=== PATIENT | male | born 1935 ===

== ENCOUNTER 2017-08-11 04:29 | Inpatient (IN) | payer MEDICARE ==
[2017-08-11] MEDS ORDERED: Sodium Chloride 0.9% 1,000 ML IV STA ×2 (04:43→05:26)
[2017-08-11] MEDS ORDERED: Lidocaine 2% w Epi 1:100,000 Inj IJ ONE (04:57)
--- NOTE | 2017-08-11 05:35 | ED PDOC ---
HPI:Nausea, Vomiting, Diarrhea <Kia Vu - Last Filed: 08/11/17 05:45> Chief Complaint (Provider): Hematemesis History Per: Patient, Family History/Exam Limitations: intoxication Onset/Duration Of Symptoms: Hrs (x1) Current Symptoms Are (Timing): Still Present Associated Symptoms: Vomiting Additional Complaint(s): 82 year old male, accompanied by and daughter (historians), presents to ED with complaints of hematemesis x1 hour and has a past medical history of DM, alcoholism, and previous GI bleeds. states patient vomited twice and has been drinking all day. (+) bright red blood including clots. Notes that symptoms are similar to patient's GI bleed 2 years ago, for which he was hospitalized in ICU. Reports that patient has continued to drink since the previous episode. Notes that patient also fell and hit his head, causing a laceration to the right eyebrow. PCP:Tammie Amezquita <Gil Cruz - Last Filed: 08/11/17 06:36> Time Seen by Provider: 08/11/17 04:36 Chief Complaint (Nursing): Abdominal Pain Past Medical History Vital Signs: Last Vital Signs Temp 97.3 F L 08/11/17 04:42 Pulse 99 H 08/11/17 04:42 Resp 16 08/11/17 04:42 BP 100/62 08/11/17 04:42 Pulse Ox 96 08/11/17 05:43 <Kia Vu - Last Filed: 08/11/17 05:45> Reviewed: Historical Data, Nursing Documentation, Vital Signs Vital Signs: Last Vital Signs Temp 97.3 F L 08/11/17 04:42 Pulse 99 H 08/11/17 04:42 Resp 16 08/11/17 04:42 BP 100/62 08/11/17 04:42 Pulse Ox 96 08/11/17 04:42 - Medical History PMH: Diabetes Denies: HIV, Chronic Kidney Disease Other PMH: GI bleeds, alcoholism - Surgical History Surgical History: No Surg Hx - Family History Family History: States: No Known Family Hx - Social History Alcohol: > 2 Drinks/Day Drugs: Denies <Gil Cruz - Last Filed: 08/11/17 06:36> - Home Medications Home Medications: Ambulatory Orders Medication Instructions Recorded No Known Home Med 07/26/12 - Allergies Allergies/Adverse Reactions: Allergies Allergy/AdvReac Type Severity Reaction Status Date / Time No Known Allergies Allergy Verified 07/31/15 21:23 Review of Systems ROS Statement: Except As Marked, All Systems Reviewed And Found Negative Gastrointestinal: Positive for: Vomiting, Hematemesis Skin: Positive for: Other (right eyebrow laceration) <Gil Cruz - Last Filed: 08/11/17 06:36> Physical Exam - Reviewed Nursing Documentation Reviewed: Yes Vital Signs Reviewed: Yes - Physical Exam Appears: Positive for: Non-toxic, No Acute Distress Head Exam: Positive for: NORMOCEPHALIC. Negative for: ATRAUMATIC (2 cm laceration to right eyebrow) Skin: Positive for: Warm, Dry, Pallor Eye Exam: Positive for: Normal appearance, EOMI, PERRL ENT: Positive for: Normal ENT Inspection Cardiovascular/Chest: Positive for: Regular Rate, Rhythm, Murmur (holosystolic murmur 3/6), Tachycardia Respiratory: Positive for: Normal Breath Sounds. Negative for: Respiratory Distress Gastrointestinal/Abdominal: Positive for: Soft. Negative for: Tenderness Extremity: Positive for: Normal ROM. Negative for: Deformity Neurologic/Psych: Positive for: Alert, Oriented <Gil Cruz - Last Filed: 08/11/17 06:36> - Laboratory Results Result Diagrams: 08/11/17 05:36 <Kia Vu - Last Filed: 08/11/17 05:45> - Laboratory Results Result Diagrams: 08/11/17 05:36 08/11/17 05:36 - ECG O2 Sat by Pulse Oximetry: 96 (RA) Pulse Ox Interpretation: Normal - Critical Care Total Time (In Min): 60 <Gil Cruz - Last Filed: 08/11/17 06:36> Medical Decision Making Medical Decision Makin Initial impression: acute upper GI bleed in setting of known alcoholism and previous GI bleeds, head injury Initial plan: * ABO/RH type * T&S * ABG shock panel * CT HEAD * CT MAXILLOFACIAL * EKG * EtOH serum * Labs * UDrug screen * Trop I * PTT/PT * CXR * Adacel 0.5mL IM * NS IV * Protonix Inj 4mg IV * Sandostatin 1250mcg IV * Zofran Inj 4mg Iv * Accucheck * UA * Re-eval 0506 * INPATIENT ICU order [address] Amezquita, who accepts patient under his service. Scribe Attestation: Documented by Karishma Arroyo acting as a scribe for Gil Cruz MD. MD Scribe Attestation: All medical record entries made by the Scribe were at my direction and personally dictated by me. I have reviewed the chart and agree that the record accurately reflects my personal performance of the history, physical exam, medical decision making, and the department course for this patient. I have also personally directed, reviewed, and agree with the discharge instructions and disposition. <Gil Cruz - Last Filed: 08/11/17 06:36> Disposition <Kia uV - Last Filed: 08/11/17 05:45> - Patient ED Disposition Is Patient to be Admitted: Yes Discussed With DrSam: Tammie Amezquita (Dr Almaraz) Counseled Patient/Family Regarding: Studies Performed, Diagnosis - Disposition Disposition Time: 06:00 - Pt Status Changed To: Hospital Disposition Of: Inpatient - Admit Certification Admit to Inpatient:: After my assessment, the patient will require hospitalization for at least two midnights. This is because of the severity of symptoms shown, intensity of services needed, and/or the medical risk in this patient being treated as an outpatient. <Gil Cruz - Last Filed: 08/11/17 06:36> - Clinical Impression Clinical Impression: GI bleed, Alcohol abuse, Eyebrow laceration - Disposition Condition: GUARDED Procedures - Laceration/Wound Repair Face Wound Length (cm): 3 (right eyebrow laceration) Wound's Depth, Shape: irregular, stellate Wound Explored: clean Irrigated w/ Saline (ccs): 200 Betadine Prep?: No Anesthesia: Lidocaine w/ Epi Wound Repaired With: Sutures Suture Size/Type: 5:0, nylon Number of Sutures: 6 Layer Closure?: No Wound Complexity: Intermediate Sterile Dressing Applied?: Yes (bacitracin applied) Splint Applied?: No <Kia Vu - Last Filed: 08/11/17 05:45>
[2017-08-11 05:41] LABS: ABG ALLEN TEST YES; ARTERIAL BLOOD GAS HCO3 20.7 mmol/L (21-28); ARTERIAL BLOOD GAS PH 7.42 (7.35-7.45); ARTERIAL BLOOD GAS PO2 108 mm/Hg (80-100)
[2017-08-11 05:42] LABS: BASO # 0.1 K/uL (0.0-0.2); BASO % 1.1 % (0.0-2.0); EOS % 0.4 % (0.0-4.0); HEMATOCRIT 34.5 % (35.0-51.0); LYMPH # 1.2 K/uL (1.0-4.3); LYMPH % 9.3 % (20.0-40.0); MEAN CELL VOLUME 100.4 fl (80.0-94.0); MEAN CORPUSCULAR HEMOGLOBIN 32.7 pg (27.0-31.0); MEAN CORPUSCULAR HGB CONC 32.6 g/dL (33.0-37.0); MEAN PLATELET VOLUME 8.9 fl (7.2-11.7); MONO # 0.6 K/uL (0.0-0.8); MONO % 4.8 % (0.0-10.0); NEUT # 10.6 K/uL (1.8-7.0); NEUT % 84.4 % (50.0-75.0); PLATELET COUNT 197 K/uL (130-400); RED CELL DISTRIBUTION WIDTH 16.1 % (11.5-14.5); WHITE BLOOD COUNT 12.5 K/uL (4.8-10.8)
[2017-08-11 05:50] LABS: ALB/GLOB RATIO 1.2 (1.0-2.1); BILIRUBIN,TOTAL 0.4 mg/dl (0.2-1.3); CALCIUM 9.2 mg/dL (8.4-10.2); POTASSIUM 4.3 MMOL/L (3.6-5.0); TOTAL PROTEIN 8.2 G/DL (6.3-8.2)
[2017-08-11 05:52] LABS: PARTIAL THROMBOPLASTIN TIME 27.7 Seconds (25.6-37.1)
--- NOTE | 2017-08-11 05:59 | CP.PCM.CON ---
History of Present Illness - History of Present Illness History of Present Illness: PCP: Tammie Amezquita MD Reason for Consult: Critical care Management Chief Complaint: Hematemesis/fall with head injury The [facility] HPI: The hx was obtained from the patient's family as he was a poor historian. He is an 82 years old male who does not walk but has hx of Being an Alcoholic drinking 1/2 to one pint of Rum daily and prior GI bleed. He was brought to the ED after drinking Alcohol, Vomiting red Bloody material including clots twice, then had a witnessed fall hitting and lacerating above the right eye. No LOC. PMH: DM II; GI Bleed: Alcoholism\ PSH: Denies SH: Drinks 1/2 to one pint of Rum daily; Never smoked; no illegal drug use; live with his family FH: No known family hx Allergies. NKDA Medication: None Review of Systems - Review of Systems Review of Systems: Review of system is limited because of the patients state of Intoxication and head injury. Family referred no complaints prior to his most recent drinking . Past Patient History - Past Medical History & Family History Past Medical History?: Yes - Past Social History Smoking Status: Never Smoked Chewing Tobacco Use: No Cigar Use: No Alcohol: > 2 Drinks/Day Drugs: Denies Home Situation {Lives}: With Family - CARDIAC Hx Cardiac Disorders: No - PULMONARY Hx Respiratory Disorders: No - NEUROLOGICAL Hx Neurological Disorder: No - HEENT Hx HEENT Problems: No - RENAL Hx Chronic Kidney Disease: No - ENDOCRINE/METABOLIC Hx Endocrine Disorders: No - HEMATOLOGICAL/ONCOLOGICAL Hx Blood Disorders: No Hx Human Immunodeficiency Virus (HIV): No - INTEGUMENTARY Hx Dermatological Problems: No - MUSCULOSKELETAL/RHEUMATOLOGICAL Hx Musculoskeletal Disorders: No Hx Falls: Yes - GASTROINTESTINAL Other/Comment: GI bleed - GENITOURINARY/GYNECOLOGICAL Hx Genitourinary Disorders: No - PSYCHIATRIC Hx Emotional Abuse: No Hx Physical Abuse: No - SURGICAL HISTORY Hx Surgeries: No - ANESTHESIA Hx Anesthesia: No Meds Allergies/Adverse Reactions: Allergies Allergy/AdvReac Type Severity Reaction Status Date / Time No Known Allergies Allergy Verified 07/31/15 21:23 - Medications Medications: Current Medications Sodium Chloride (Sodium Chloride 0.9%) 1,000 mls @ 250 mls/hr IV .Q4H STA Stop: 08/11/17 08:42 Pantoprazole Sodium 40 mg/ (Sodium Chloride) 100 mls @ 20 mls/hr IV .Q5H ENRIQUE PRN Reason: 8 MG/HR Octreotide Acetate 1,250 mcg/ (Sodium Chloride) 252.5 mls @ 10.1 mls/hr IV .Q24H ENRIQUE PRN Reason: 50 MCG/HR Last Admin: 08/11/17 05:51 Dose: 10.1 mls/hr Sodium Chloride (Sodium Chloride 0.9%) 1,000 mls @ 1,000 mls/hr IV .Q1H STA Stop: 08/11/17 06:25 Last Admin: 08/11/17 05:36 Dose: 1,000 mls/hr Physical Exam - Constitutional Appears: No Acute Distress - Head Exam Head Exam: NORMOCEPHALIC Additional comments: Laceration at the right eye brow sutured, no subconjunctival hemorrhage. Vision has not changed as per family. - Eye Exam Eye Exam: EOMI, Normal appearance - ENT Exam ENT Exam: Mucous Membranes Moist, Normal Exam, Normal External Ear Exam - Neck Exam Neck exam: Positive for: Full Rom, Normal Inspection. Negative for: Lymphadenopathy, Tenderness - Respiratory Exam Respiratory Exam: Clear to Auscultation Bilateral. absent: Rales, Rhonchi, Wheezes - Cardiovascular Exam Cardiovascular Exam: REGULAR RHYTHM, RRR, +S1, +S2. absent: Gallop, JVD - GI/Abdominal Exam GI & Abdominal Exam: Normal Bowel Sounds, Soft. absent: Hypoactive Bowel Sounds , Mass, Tenderness - Rectal Exam Rectal Exam: Deferred - Extremities Exam Extremities exam: Negative for: calf tenderness, pedal edema Additional comments: Bruises to both knees. - Back Exam Back exam: NORMAL INSPECTION. absent: CVA tenderness (L), CVA tenderness (R) - Neurological Exam Neurological exam: Alert, CN II-XII Intact, Reflexes Normal Additional comments: nswers questions when the family talks to him/ Moves all extremities - Psychiatric Exam Psychiatric exam: Normal Affect, Normal Mood - Skin Skin Exam: Dry, Intact, Normal Color, Warm Results - Vital Signs Recent Vital Signs: Last Vital Signs Temp 97.3 F L 08/11/17 04:42 Pulse 99 H 08/11/17 04:42 Resp 16 08/11/17 04:42 BP 100/62 08/11/17 04:42 Pulse Ox 96 08/11/17 05:43 - Labs Result Diagrams: 08/11/17 05:36 08/11/17 05:36 Labs: Laboratory Results - last 24 hr 08/11/17 08/11/17 08/11/17 05:36 05:36 05:37 WBC 12.5 H D RBC 3.43 L Hgb 11.2 L Hct 34.5 L MCV 100.4 H MCH 32.7 H MCHC 32.6 L RDW 16.1 H Plt Count 197 MPV 8.9 Neut % (Auto) 84.4 H Lymph % (Auto) 9.3 L [place] % (Auto) 4.8 Eos % (Auto) 0.4 Baso % (Auto) 1.1 Neut # 10.6 H Lymph # 1.2 [place] # 0.6 Eos # 0.0 Baso # 0.1 PT 10.1 INR 0.9 APTT 27.7 pCO2 27 L pO2 108 H HCO3 20.7 L ABG pH 7.42 ABG Total CO2 18.3 L ABG O2 Saturation 99.7 H ABG Base Excess -5.5 L Gigi Test Yes ABG Potassium 4.3 A-a O2 Difference 8.0 Sodium 138.0 Chloride 101.0 Glucose 129 H Lactate 7.6 H* FiO2 21.0 Crit Value Called To Gil malone md Crit Value Called By [id number] Crit Value Read Back Y Blood Gas Notified Time 540 Arterial Blood Potassium 4.3 - Impressions Impression: NSR 99/min with Peaked T waves in leads V3-6 - Imaging and Cardiology Chest x-ray Status: Image reviewed by me Additional comment: No Infiltrates CT scan - head Status: Image reviewed by me, Report reviewed by me Additional comment: No intracraneal bleed Maxillofacila CT Status: Image reviewed by me, Report reviewed by me Additional comment: Fracture of Anterior Nasal Bone Assessment & Plan - Assessment and Plan (Free Text) Assessment: #. Upper GI Bleed #. Head Injury #. Right Eyebrow laceration #. Anemia #. Thrombocytopenia #. Azotemia #. leukocytosis #. Alcoholism Plan: 82 years old male who does not walk but has hx of Being an Alcoholic drinking 1/2 to one pint of Rum daily and prior GI bleed. He was brought to the ED after drinking Alcohol, Vomiting red Bloody material including clots twice, then had a witnessed fall hitting and lacerating above the right eye. No LOC. #. Upper GI Bleed due to esophageal varices vs a Mallery Payne tear - Consult GI Dr Cast - Protonix Drip - Octreotide drip - NPO - Follow Hb Q8H #. Head injury and right eyebrow laceration - Sutured bu ED Doctor - Observe for Mental status change, vomiting, severe headaches #. Macrocytic Anemia - Folic Acid -follow HB #. Thrombocytopenia due to Alcohol abuse - follow Platelets #. Azotemia - IV fluis - Follow Renal labs #. leukocytosis, reactional - Follow WBC #. Alcoholism - CIWA protocol for Withdrawal of Alcohol - Ativan for Agitation #. DVT protocol with SCD. No Anticoagulant because of GI bleed #. Codse Status: Full - Date & Time Date: 08/11/17 Time: 05:59
[2017-08-11 06:00] LABS: TROPONIN I 0.028 ng/mL (0.00-0.120)
[2017-08-11] MEDS ORDERED: Multivitamin (MVI) 10 ML, Folic Acid 1 MG, Thiamine 100 MG in Sodium Chloride 0.9% 1,00... IV ONE (06:38)
--- NOTE | 2017-08-11 06:48 | CT ---
EXAM: CT Maxillofacial Without Intravenous Contrast EXAM DATE/TIME: 08/11/2017 5:04 AM CLINICAL HISTORY: 82 years old, male; Injury or trauma; Fall; Initial encounter; Blunt trauma (contusions or hematomas); Maxilla; Additional info: Facial trauma TECHNIQUE: Axial computed tomography images of the face without intravenous contrast. All CT scans at this facility use one or more dose reduction techniques, viz.: automated exposure control; ma/kV adjustment per patient size (including targeted exams where dose is matched to indication; i.e. head); or iterative reconstruction technique. Coronal and sagittal reformatted images were created and reviewed. COMPARISON: No relevant prior studies available. FINDINGS: Bones/joints: Fracture left anterior nasal bone. No appreciable overlying soft tissue swelling. Soft tissues: Mild right frontal scalp swelling and likely laceration with tiny air bubbles in the soft tissue. Orbits: Both globes, optic nerves and extraocular muscles appear symmetrical. Sinuses: Procedure thickening ethmoid and maxillary sinuses. Bilateral contra bullosa of middle turbinates. No air-fluid levels. IMPRESSION: Fracture left anterior nasal bone. Indeterminate age, correlate with physical examination.
[2017-08-11] MEDS: Pantoprazole 40 MG in Sodium Chloride 0.9% 100 ML IV SCH ×4 (06:52→21:25)
--- NOTE | 2017-08-11 06:52 | CT ---
EXAM: CT Head Without Intravenous Contrast EXAM DATE/TIME: 08/11/2017 5:04 AM CLINICAL HISTORY: 82 years old, male; Injury or trauma; Fall; Additional info: Head injury TECHNIQUE: Axial computed tomography images of the head/brain without intravenous contrast. All CT scans at this facility use one or more dose reduction techniques, viz.: automated exposure control; ma/kV adjustment per patient size (including targeted exams where dose is matched to indication; i.e. head); or iterative reconstruction technique. Coronal and sagittal reformatted images were created and reviewed. COMPARISON: CT HEAD OR BRAIN W/O CONT 2013-02-05 15:48 FINDINGS: There is no subdural or subarachnoid hemorrhage. There is no intraparenchymal hemorrhage or hemorrhagic contusion. Normal aviles white differentiation is noted. No midline shift or mass effect is identified. There are periventricular white matter changes of small vessel ischemic disease. There are cerebellar and cerebral atrophy. Calvarium and visualized facial bones appear intact. There is mucosal thickening of ethmoid and maxillary sinuses. There is cerumen in the right external auditory canal. IMPRESSION: 1. No evidence of acute intracerebral hemorrhage or edema. 2. Small vessel ischemic disease and atrophy.
[2017-08-11 09:13] LABS: BASO # 0.1 K/uL (0.0-0.2); BASO % 0.4 % (0.0-2.0); HEMATOCRIT 32.8 % (35.0-51.0); LYMPH # 0.6 K/uL (1.0-4.3); LYMPH % 3.9 % (20.0-40.0); MEAN CELL VOLUME 100.7 fl (80.0-94.0); MEAN CORPUSCULAR HEMOGLOBIN 32.3 pg (27.0-31.0); MEAN CORPUSCULAR HGB CONC 32.1 g/dL (33.0-37.0); MEAN PLATELET VOLUME 8.9 fl (7.2-11.7); MONO # 0.6 K/uL (0.0-0.8); NEUT # 14.3 K/uL (1.8-7.0); NEUT % 91.7 % (50.0-75.0); RED CELL DISTRIBUTION WIDTH 15.5 % (11.5-14.5); WHITE BLOOD COUNT 15.6 K/uL (4.8-10.8)
[2017-08-11] MEDS ORDERED: Multivitamin (MVI) 10 ML, Thiamine 100 MG in Sodium Chloride 0.9% 1,000 ML IV ONE (10:07)
[2017-08-11] MEDS ORDERED: Influenza Vaccine 18yr & older 0.5 ML/45 MCG SYR IM ONE (10:30)
[2017-08-11 10:33] LABS: NEUTROPHIL 82 % (42-75); TOTAL CELLS COUNTED 100
--- NOTE | 2017-08-11 11:14 | RAD ---
HISTORY: GI Bleed COMPARISON: 07/31/2015 FINDINGS: LUNGS: The lungs are well inflated and clear. PLEURA: No significant pleural effusion identified, no pneumothorax apparent. CARDIOVASCULAR: Normal. OSSEOUS STRUCTURES: No significant abnormalities. VISUALIZED UPPER ABDOMEN: Normal. OTHER FINDINGS: None. IMPRESSION: No active pulmonary disease.
[2017-08-11 20:16] LABS: HEMATOCRIT 28.4 % (35.0-51.0); MEAN CELL VOLUME 105.3 fl (80.0-94.0); MEAN CORPUSCULAR HGB CONC 31.3 g/dL (33.0-37.0); RED CELL DISTRIBUTION WIDTH 16.6 % (11.5-14.5); WHITE BLOOD COUNT 8.2 K/uL (4.8-10.8)
[2017-08-11 23:04] LABS: RBC URINE 3 /hpf (0-3); URINE BILIRUBIN NEGATIVE (NEGATIVE); URINE BLOOD NEGATIVE (NEGATIVE); URINE COLOR YELLOW (YELLOW); URINE GLUCOSE (UA) NEG (Normal); URINE KETONE 20 mg/dL (NEGATIVE); URINE LEUKOCYTE ESTERASE NEG Leu/uL (Negative); URINE PROTEIN NEGATIVE (NEGATIVE); URINE UROBILINOGEN 0.2-1.0 mg/dL (0.2-1.0); WBC URINE 2 /hpf (0-5)
[2017-08-12 00:45] LABS: HEMATOCRIT 26.3 % (35.0-51.0); MEAN CELL VOLUME 99.6 fl (80.0-94.0); MEAN CORPUSCULAR HEMOGLOBIN 32.7 pg (27.0-31.0); MEAN CORPUSCULAR HGB CONC 32.8 g/dL (33.0-37.0); RED CELL DISTRIBUTION WIDTH 15.5 % (11.5-14.5); WHITE BLOOD COUNT 8.6 K/uL (4.8-10.8)
[2017-08-12] MEDS: Pantoprazole 40 MG in Sodium Chloride 0.9% 100 ML IV SCH ×2 (02:54→11:01)
[2017-08-12] MEDS: Sodium Chloride 0.9% 1,000 ML IV SCH ×3 (02:55→11:07)
--- NOTE | 2017-08-12 04:42 | HP ---
HISTORY OF PRESENT ILLNESS: This is an 82 years old male with history of EtOH abuse and BPH, who was brought to emergency room after a fall and vomiting of coffee-ground material. The patient sustained contusion of the right ophthalmic area after the fall. The patient has previous history of upper gastrointestinal bleeding. The patient drinks everyday *------*. He denies any abdominal pain. Denies any symptoms of melena or bleeding per rectum. There is no history of usage of any nonsteroidal antiinflammatory drugs. PAST MEDICAL HISTORY: Gastrointestinal bleeding, vitamin D deficiency, and benign prostatic hypertrophy. FAMILY HISTORY: Noncontributory. SOCIAL HISTORY: The patient drinks every day. No smoking or other substance abuse. REVIEW OF SYSTEMS: Other review of systems is negative. ALLERGIES: NO KNOWN ALLERGY. HOME MEDICATIONS: Multivitamin. PHYSICAL EXAMINATION: GENERAL: The patient is in bed comfortable, not in any cardiopulmonary distress. VITAL SIGNS: Blood pressure of 97/57, temperature 98.7, respiratory rate 17, and pulse 90. HEENT: Pupils are equal and reactive to light. Normal-appearing mucosa of the conjunctivae, oropharyngeal and nasal membrane mucosa. The patient has a bluish discoloration at the site of contusion of the right ophthalmic area. NECK: Supple. No JVD. No carotid bruit. No lymph node. No thyromegaly. CHEST AND LUNGS: Bilateral symmetrical expansion. Good air exchange. No rales. No rhonchi. CARDIOVASCULAR SYSTEM: PMI is not localized. S1, S2. No additional sounds. ABDOMEN: Normoactive bowel sounds. No tenderness. No organomegaly. No masses. EXTREMITIES: No cyanosis. No clubbing. No edema. CENTRAL NERVOUS SYSTEM: Alert, awake, and oriented x2. No neurological deficit could be appreciated. ASSESSMENT: Upper gastrointestinal bleeding, fall with head trauma, but no loss of consciousness, unsteady gait, and ethanol abuse. PLAN: We will give the patient multivitamin, thiamine, and Ativan every four hours as needed for alcohol withdrawal symptoms. We will monitor hemoglobin and hematocrit. We will give this patient Protonix. GI consult and further recommendations. Tammie Amezquita MD
[2017-08-12 05:44] VITALS: BMI 20.6
[2017-08-12 05:52] LABS: HEMATOCRIT 22.8 % (35.0-51.0); MEAN CELL VOLUME 101.6 fl (80.0-94.0); MEAN CORPUSCULAR HEMOGLOBIN 33.5 pg (27.0-31.0); RED CELL DISTRIBUTION WIDTH 16.1 % (11.5-14.5); WHITE BLOOD COUNT 7.3 K/uL (4.8-10.8)
[2017-08-12 06:08] LABS: CALCIUM 7.3 mg/dL (8.4-10.2); POTASSIUM 4.6 MMOL/L (3.6-5.0)
--- NOTE | 2017-08-12 08:29 | CON ---
DATE: 08/11/2017 REFERRING PROVIDER: REASON FOR CONSULTATION: Hematemesis, anemia. HISTORY OF PRESENT ILLNESS: This is an 82-year-old male who is a poor historian, but the family is present at bedside, essentially is an alcoholic, he drinks chronically, . No melena. No hematochezia. He also had a fall with a maceration above his right eye. Currently lying in bed comfortably in no apparent distress. PAST MEDICAL HISTORY: As above. PAST SURGICAL HISTORY: As above. MEDICATIONS: Have been reviewed. REVIEW OF SYSTEMS: All other systems have been reviewed and negative apart from the HPI. PHYSICAL EXAMINATION: GENERAL: Here in the hospital, grossly unremarkable. VITAL SIGNS: Pleasant elderly appearing male, lying in bed comfortable in no apparent distress. HEENT: Head is normocephalic and atraumatic. Eyes, pupils are equally round and reactive to light bilaterally. No conjunctival pallor or icterus. NECK: Supple. Normal range of motion. No lymphadenopathy appreciated. LUNGS: Coarse breath sounds bilaterally. HEART: S1 and S2. Regular rate and rhythm. No murmurs appreciated. ABDOMEN: Soft and nontender. Bowel sounds present. No rebound. No guarding. RECTAL: Deferred. EXTREMITIES: Pulses present bilaterally. SKIN: Warm, dry and intact. NEUROLOGIC: A and O x3. LABORATORY DATA: All labs and relevant radiology have been reviewed. Labs include WBC 15.6, hemoglobin 10.5, hematocrit 32.8, and platelet count is 173. INR is 0.9. Alcohol level is 75. Creatinine 1.2. ASSESSMENT AND PLAN: This is an 82-year-old man, alcoholic with gross hematemesis. From gastrointestinal standpoint, he is on appropriate drips, although hemoglobin is currently stable, this is unlikely variceal bleeding. We will plan for endoscopy as soon as possible. For now, abdominal ultrasound to follow. Thank you for the consult. Troy Cast MD/ PhD cc:
--- NOTE | 2017-08-12 11:37 | US ---
HISTORY: Active GI bleeding COMPARISON: 10/30/2015. Renal ultrasound TECHNIQUE: Sonographic evaluation of the abdomen. FINDINGS: LIVER: Measures 12.8 cm. Patent portal vein. Portal venous flow: Hepatopetal. Unremarkeable echogenicity of the liver parenchyma. No mass. No intrahepatic bile duct dilatation. GALLBLADDER: Unremarkable. No gallstones. COMMON BILE DUCT: Measures 3.1 mm. No stones. No dilatation. PANCREAS: Unremarkable as visualized. RIGHT KIDNEY: Measures 4.8 x 9.0cm. Normal echogenicity. No calculus, mass, or hydronephrosis.Incidental finding(s): Simple cyst midpole region 1.5 cm. LEFT KIDNEY: Measures 5.1 x 9.5cm. Normal echogenicity. No calculus, mass, or hydronephrosis. SPLEEN: Normal in size and contour. No mass. AORTA: No aneurysmal dilatation. IVC: Unremarkable. OTHER FINDINGS: None. IMPRESSION: No acute findings related to/accounting for the clinical presentation. No significant interval change compared to the prior examination(s).
--- NOTE | 2017-08-12 11:58 | CARD ---
APPROVED REPORT EKG Measurement Heart [id number] CO [id number] <Conclusion> Sinus rhythm with premature supraventricular complexes Otherwise normal ECG
--- NOTE | 2017-08-12 15:13 | CP.PCM.PN ---
Subjective - Date & Time of Evaluation Date of Evaluation: 08/12/17 Time of Evaluation: 15:00 - Subjective Subjective: no bleeding Objective - Vital Signs/Intake and Output Vital Signs (last 24 hours): Temp Pulse Resp BP Pulse Ox 99.6 F 74 20 133/66 100 08/12/17 12:00 08/12/17 14:00 08/12/17 14:00 08/12/17 14:00 08/12/17 14:00 Intake and Output: 08/12/17 08/12/17 06:59 18:59 Intake Total 1555 Output Total 300 100 Balance 1255 -100 - Medications Medications: Current Medications Octreotide Acetate 1,250 mcg/ (Sodium Chloride) 252.5 mls @ 10.1 mls/hr IV .Q24H ENRIQUE PRN Reason: 50 MCG/HR Last Admin: 08/12/17 06:40 Dose: 10.1 mls/hr Pantoprazole Sodium 40 mg/ (Sodium Chloride) 100 mls @ 20 mls/hr IV Q5H ENRIQUE Last Admin: 08/12/17 11:01 Dose: 20 mls/hr Sodium Chloride (Sodium Chloride 0.9%) 1,000 mls @ 125 mls/hr IV .Q8H ENRIQUE Stop: 08/12/17 18:54 Last Admin: 08/12/17 11:07 Dose: 125 mls/hr Lorazepam (Ativan) 0.5 mg IVP Q6 PRN PRN Reason: Agitation - Labs Labs: 08/12/17 06:00 08/12/17 04:20 PT 10.1 Seconds (9.8-13.1) 08/11/17 05:36 INR 0.9 (0.9-1.2) 08/11/17 05:36 APTT 27.7 Seconds (25.6-37.1) 08/11/17 05:36 - Head Exam Head Exam: NORMOCEPHALIC - Respiratory Exam Respiratory Exam: NORMAL BREATHING PATTERN - Cardiovascular Exam Cardiovascular Exam: REGULAR RHYTHM - GI/Abdominal Exam GI & Abdominal Exam: Soft, Normal Bowel Sounds Assessment and Plan - Assessment and Plan (Free Text) Assessment: 82 yo male with anemia plan for egd once stable ppi
[2017-08-12] MEDS: Pantoprazole 40 mg EC Tab PO SCH (16:31)
[2017-08-12] MEDS ORDERED: Sodium Chloride 0.9% 1,000 ML IV SCH (18:00)
--- NOTE | 2017-08-12 18:01 | CP.CCUPN ---
CCU Subjective - Physician Review Subjective (Free Text): Cleared for PO liquid diet today and off PPi drip, remains on Octreotide infusion. No active bleeding noted. No excessive agitation, tremors, nor signs of delirium noted. Admission ETOH level of 75 noted and aware of daily ETOH usage. Denies any fevers, chills, sweats, cough, chest discomfort, SOB, N/V, or change in BMs. Other vitals and I/O's reviewed. ROS: No other pertinent negs or positives on 10+ system review. PMSFH: All other Nursing and physician documentation reviewed to date; no new pertinent info noted relevant to current medical problems. IMPRESSION / MAJOR PROBLEMS NOW: 1. Suspected UGI Bleed source. 2. 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 s/p Fall with Head Trauma 4. Azotemia/ Dehudration PLAN: 1. NSS fluid hydration until lactate acid normalizes. 2. PO diet and food intake when cleared by GI 3. No active bleeding. Hgb drop most likely hydrational. 4. Watch for DTs, stable for transfer to tele bed for further observation and mgmt, unless he requires airway support or hemodynamics destabilize. CCU Objective - Vital Signs / Intake & Output Vital Signs (Last 4 hours): Vital Signs Temp Pulse Resp BP Pulse Ox 08/12/17 16:00 98.6 F 84 23 122/57 L 100 Intake and Output (Last 8hrs): Intake & Output 08/12/17 08/12/17 08/12/17 06:59 14:59 22:59 Intake Total 1120 Output Total 300 100 Balance 820 -100 Weight 131 lb 12.8 oz Intake: IV 1000 Intake, Piggyback 120 Output: Urine 300 100 Urine, Voided 300 100 - Physical Exam Head: Positive for: Normocephalic Pupils: Positive for: PERRL Extroacular Muscles: Positive for: EOMI Conjunctiva: Positive for: Normal. Negative for: Icteric Mouth: Positive for: Moist Mucous Membranes Pharnyx: Positive for: Normal Neck: Negative for: JVD, Lymphadenopathy Respiratory/Chest: Positive for: Clear to Auscultation. Negative for: Accessory Muscle Use, Wheezes Cardiovascular: Positive for: Regular Rate and Rhythm. Negative for: Murmurs, Tachycardic, Rub Abdomen: Positive for: Normal Bowel Sounds. Negative for: Tenderness, Distention, Mass/Organomegaly Lower Extremity: Positive for: NORMAL PULSES. Negative for: Edema, CALF TENDERNESS, Cyanosis Neurological: Positive for: GCS=15, CN II-XII Intact, Motor Func Grossly Intact , Normal Sensory Function, Normal Cerebellar Funct Skin: Positive for: Warm, Dry. Negative for: Rashes Psychiatric: Positive for: Alert, Oriented x 3 - Medications Active Medications: Active Medications Generic Name Dose Route Start Last Admin Trade Name Freq PRN Reason Stop Dose Admin Octreotide Acetate 1,250 mcg/ 252.5 mls @ 10.1 mls/hr 08/11/17 05:00 06:40 Sodium Chloride IV 10.1 mls/hr .Q24H ENRIQUE Administration 50 MCG/HR Sodium Chloride 1,000 mls @ 125 mls/hr 08/11/17 19:00 08/12/17 11:07 Sodium Chloride 0.9% IV 08/12/17 18:54 125 mls/hr .Q8H ENRIQUE Administration Sodium Chloride 1,000 mls @ 75 mls/hr 08/12/17 18:00 Sodium Chloride 0.9% IV 08/13/17 17:54 .[id number] ENRIQUE Lorazepam 0.5 mg 08/11/17 07:30 Ativan IVP Q6 PRN Agitation Pantoprazole Sodium 40 mg 08/12/17 17:00 08/12/17 16:31 Protonix Ec Tab PO 40 mg BID ENRIQUE Administration - Patient Studies Lab Studies: Lab Studies 08/12/17 08/12/17 08/12/17 Range/Units 06:00 04:20 00:42 WBC 7.3 8.6 (4.8-10.8) K/uL RBC 2.24 L 2.64 L (4.40-5.90) Mil/uL Hgb 7.5 L 8.6 L (12.0-18.0) g/dL Hct 22.8 L 26.3 L (35.0-51.0) % MCV 101.6 H D 99.6 H D (80.0-94.0) fl MCH 33.5 H 32.7 H (27.0-31.0) pg MCHC 33.0 32.8 L (33.0-37.0) g/dL RDW 16.1 H 15.5 H (11.5-14.5) % Plt Count 136 152 (130-400) K/uL Sodium 142 (132-148) mmol/l Potassium 4.6 (3.6-5.0) MMOL/L Chloride 110 H (98-107) mmol/L Carbon Dioxide 21 L (22-30) mmol/L Anion Gap 15 (10-20) BUN 42 H (9-20) mg/dl Creatinine 1.8 H (0.8-1.5) mg/dl Est GFR ( Amer) 44 Est GFR (Non-Af Amer) 36 Random Glucose 122 H (75-110) mg/dL Calcium 7.3 L (8.4-10.2) mg/dL Urine Color (YELLOW) Urine Clarity (Clear) Urine pH (5.0-8.0) Ur Specific [place] (1.003-1.030) Urine Protein (NEGATIVE) mg/dL Urine Glucose (UA) (Normal) mg/dL Urine Ketones (NEGATIVE) mg/dL Urine Blood (NEGATIVE) Urine Nitrate (NEGATIVE) Urine Bilirubin (NEGATIVE) Urine Urobilinogen (0.2-1.0) mg/dL Ur Leukocyte Esterase (Negative) Yaneth/uL Urine RBC (Auto) (0-3) /hpf Urine Microscopic WBC (0-5) /hpf Ur Squamous Epith Cells (0-5) /hpf Hyaline Casts (0-2) /hpf Urine Opiates Screen (NEGATIVE) Urine Methadone Screen (NEGATIVE) Ur Barbiturates Screen (NEGATIVE) Ur Phencyclidine Scrn (NEGATIVE) Ur Amphetamines Screen (NEGATIVE) U Benzodiazepines Scrn (NEGATIVE) U Oth Cocaine Metabols (NEGATIVE) U Cannabinoids Screen (NEGATIVE) 08/11/17 08/11/17 08/11/17 Range/Units 22:45 22:45 19:15 WBC 8.2 (4.8-10.8) K/uL RBC 2.69 L (4.40-5.90) Mil/uL Hgb 8.9 L (12.0-18.0) g/dL Hct 28.4 L (35.0-51.0) % MCV 105.3 H D (80.0-94.0) fl MCH 33.0 H (27.0-31.0) pg MCHC 31.3 L (33.0-37.0) g/dL RDW 16.6 H (11.5-14.5) % Plt Count 151 (130-400) K/uL Sodium (132-148) mmol/l Potassium (3.6-5.0) MMOL/L Chloride (98-107) mmol/L Carbon Dioxide (22-30) mmol/L Anion Gap (10-20) BUN (9-20) mg/dl Creatinine (0.8-1.5) mg/dl Est GFR ( Amer) Est GFR (Non-Af Amer) Random Glucose (75-110) mg/dL Calcium (8.4-10.2) mg/dL Urine Color Yellow (YELLOW) Urine Clarity Slighty-cloudy (Clear) Urine pH 5.0 (5.0-8.0) Ur Specific [place] 1.015 (1.003-1.030) Urine Protein Negative (NEGATIVE) mg/dL Urine Glucose (UA) Neg (Normal) mg/dL Urine Ketones 20 (NEGATIVE) mg/dL Urine Blood Negative (NEGATIVE) Urine Nitrate Negative (NEGATIVE) Urine Bilirubin Negative (NEGATIVE) Urine Urobilinogen 0.2-1.0 (0.2-1.0) mg/dL Ur Leukocyte Esterase Neg (Negative) Yaneth/uL Urine RBC (Auto) 3 (0-3) /hpf Urine Microscopic WBC 2 (0-5) /hpf Ur Squamous Epith Cells < 1 (0-5) /hpf Hyaline Casts 0-2 (0-2) /hpf Urine Opiates Screen Negative (NEGATIVE) Urine Methadone Screen Negative (NEGATIVE) Ur Barbiturates Screen Negative (NEGATIVE) Ur Phencyclidine Scrn Negative (NEGATIVE) Ur Amphetamines Screen Negative (NEGATIVE) U Benzodiazepines Scrn Negative (NEGATIVE) U Oth Cocaine Metabols Negative (NEGATIVE) U Cannabinoids Screen Negative (NEGATIVE) Laboratory Results - last 24 hr 08/11/17 08/11/17 08/11/17 19:15 22:45 22:45 WBC 8.2 RBC 2.69 L Hgb 8.9 L Hct 28.4 L MCV 105.3 H D MCH 33.0 H MCHC 31.3 L RDW 16.6 H Plt Count 151 Sodium Potassium Chloride Carbon Dioxide Anion Gap BUN Creatinine Est GFR ( Amer) Est GFR (Non-Af Amer) Random Glucose Calcium Urine Color Yellow Urine Clarity Slighty-cloudy Urine pH 5.0 Ur Specific [place] 1.015 Urine Protein Negative Urine Glucose (UA) Neg Urine Ketones 20 Urine Blood Negative Urine Nitrate Negative Urine Bilirubin Negative Urine Urobilinogen 0.2-1.0 Ur Leukocyte Esterase Neg Urine RBC (Auto) 3 Urine Microscopic WBC 2 Ur Squamous Epith Cells < 1 Hyaline Casts 0-2 Urine Opiates Screen Negative Urine Methadone Screen Negative Ur Barbiturates Screen Negative Ur Phencyclidine Scrn Negative Ur Amphetamines Screen Negative U Benzodiazepines Scrn Negative U Oth Cocaine Metabols Negative U Cannabinoids Screen Negative 08/12/17 08/12/17 08/12/17 00:42 04:20 06:00 WBC 8.6 7.3 RBC 2.64 L 2.24 L Hgb 8.6 L 7.5 L Hct 26.3 L 22.8 L MCV 99.6 H D 101.6 H D MCH 32.7 H 33.5 H MCHC 32.8 L 33.0 RDW 15.5 H 16.1 H Plt Count 152 136 Sodium 142 Potassium 4.6 Chloride 110 H Carbon Dioxide 21 L Anion Gap 15 BUN 42 H Creatinine 1.8 H Est GFR ( Amer) 44 Est GFR (Non-Af Amer) 36 Random Glucose 122 H Calcium 7.3 L Urine Color Urine Clarity Urine pH Ur Specific [place] Urine Protein Urine Glucose (UA) Urine Ketones Urine Blood Urine Nitrate Urine Bilirubin Urine Urobilinogen Ur Leukocyte Esterase Urine RBC (Auto) Urine Microscopic WBC Ur Squamous Epith Cells Hyaline Casts Urine Opiates Screen Urine Methadone Screen Ur Barbiturates Screen Ur Phencyclidine Scrn Ur Amphetamines Screen U Benzodiazepines Scrn U Oth Cocaine Metabols U Cannabinoids Screen Fingerstick Blood Sugar Results: 148 Review of Systems - Review of Systems All systems: reviewed and no additional remarkable complaints except (as above) Critical Care Progress Note - Nutrition Nutrition: Nutrition Category Date Time Status Liquid Diet [DIET] Diets 08/11/17 Dinner Active
[2017-08-12 18:41] LABS: HEMATOCRIT 24.6 % (35.0-51.0); MEAN CELL VOLUME 99.9 fl (80.0-94.0); MEAN CORPUSCULAR HEMOGLOBIN 32.8 pg (27.0-31.0); MEAN CORPUSCULAR HGB CONC 32.9 g/dL (33.0-37.0); RED CELL DISTRIBUTION WIDTH 15.8 % (11.5-14.5); WHITE BLOOD COUNT 6.2 K/uL (4.8-10.8)
[2017-08-12 18:52] LABS: CALCIUM 7.5 mg/dL (8.4-10.2); POTASSIUM 4.2 MMOL/L (3.6-5.0)
[2017-08-13 05:35] LABS: HEMATOCRIT 25.1 % (35.0-51.0); MEAN CELL VOLUME 102.4 fl (80.0-94.0); MEAN CORPUSCULAR HEMOGLOBIN 33.4 pg (27.0-31.0); MEAN CORPUSCULAR HGB CONC 32.7 g/dL (33.0-37.0); RED CELL DISTRIBUTION WIDTH 15.9 % (11.5-14.5); WHITE BLOOD COUNT 6.3 K/uL (4.8-10.8)
[2017-08-13 06:14] LABS: BILIRUBIN,TOTAL 0.4 mg/dl (0.2-1.3); CALCIUM 7.6 mg/dL (8.4-10.2); POTASSIUM 4.2 MMOL/L (3.6-5.0)
--- NOTE | 2017-08-13 08:25 | CP.CCUPN ---
CCU Subjective - Physician Review Subjective (Free Text): Remains on Octreotide infusion. No active bleeding noted. No excessive agitation , tremors, nor signs of delirium noted. Admission ETOH level of 75 noted and aware of daily ETOH usage. Lactate levels have normalized. Denies any fevers, chills, sweats, cough, chest discomfort, SOB, N/V, or change in BMs. Other vitals and I/O's reviewed. ROS: No other pertinent negs or positives on 10+ system review. PMSFH: All other Nursing and physician documentation reviewed to date; no new pertinent info noted relevant to current medical problems. IMPRESSION / MAJOR PROBLEMS NOW: 1. Suspected UGI Bleed source. 2. Chronic Alcoholism with possible AKA on presentation. 3. s/p Fall with Head Trauma 4. Azotemia/ Dehudration PLAN: 1. NSS fluid hydration for another 24H 2. Advance PO diet and food intake when cleared by GI 3. No active bleeding. Hgb drop most likely hydrational. 4. Watch for DTs, stable for transfer to Regular med / surg bed for further observation and mgmt, unless he requires airway support or hemodynamics destabilize. No cardiac monitoring required for Octreotide infusion if GI requests continuation. CCU Objective - Vital Signs / Intake & Output Vital Signs (Last 4 hours): Vital Signs Pulse Resp BP Pulse Ox 08/13/17 06:00 61 21 147/68 99 Intake and Output (Last 8hrs): Intake & Output 08/12/17 08/13/17 08/13/17 22:59 06:59 14:59 Intake Total 2385 680 75 Output Total 450 350 125 Balance 1935 330 -50 Weight 136 lb 4.8 oz Intake: IV 2004 600 75 Intake, Piggyback 30 80 Oral 350 Output: Urine 450 350 125 Urine, Voided 450 350 125 Other: # Bowel Movements 1 - Physical Exam Head: Positive for: Normocephalic Pupils: Positive for: PERRL Extroacular Muscles: Positive for: EOMI Conjunctiva: Positive for: Normal. Negative for: Icteric Mouth: Positive for: Moist Mucous Membranes Pharnyx: Positive for: Normal Neck: Negative for: JVD, Lymphadenopathy Respiratory/Chest: Positive for: Clear to Auscultation. Negative for: Accessory Muscle Use, Wheezes Cardiovascular: Positive for: Regular Rate and Rhythm. Negative for: Murmurs, Tachycardic, Rub Abdomen: Positive for: Normal Bowel Sounds. Negative for: Tenderness, Distention, Mass/Organomegaly Lower Extremity: Positive for: NORMAL PULSES. Negative for: Edema, CALF TENDERNESS, Cyanosis Neurological: Positive for: GCS=15, CN II-XII Intact, Motor Func Grossly Intact , Normal Sensory Function, Normal Cerebellar Funct Skin: Positive for: Warm, Dry. Negative for: Rashes Psychiatric: Positive for: Alert, Oriented x 3 - Medications Active Medications: Active Medications Generic Name Dose Route Start Last Admin Trade Name Freq PRN Reason Stop Dose Admin Octreotide Acetate 1,250 mcg/ 252.5 mls @ 10.1 mls/hr 08/11/17 05:00 06:40 Sodium Chloride IV 10.1 mls/hr .Q24H ENRIQUE Administration 50 MCG/HR Sodium Chloride 1,000 mls @ 75 mls/hr 08/12/17 18:00 08/12/17 20:10 Sodium Chloride 0.9% IV 08/13/17 17:54 75 mls/hr .[id number] ENRIQUE Administration Lorazepam 0.5 mg 08/11/17 07:30 Ativan IVP Q6 PRN Agitation Pantoprazole Sodium 40 mg 08/12/17 17:00 08/12/17 16:31 Protonix Ec Tab PO 40 mg BID ENRIQUE Administration - Patient Studies Lab Studies: Microbiology Studies 08/11/17 11:05 MRSA Culture (Admit) - Final Naris MRSA NOT DETECTED Lab Studies 08/13/17 08/13/17 08/13/17 Range/Units 04:40 04:40 04:20 WBC 6.3 (4.8-10.8) K/uL RBC 2.45 L (4.40-5.90) Mil/uL Hgb 8.2 L (12.0-18.0) g/dL Hct 25.1 L (35.0-51.0) % MCV 102.4 H D (80.0-94.0) fl MCH 33.4 H (27.0-31.0) pg MCHC 32.7 L (33.0-37.0) g/dL RDW 15.9 H (11.5-14.5) % Plt Count 140 (130-400) K/uL Sodium 144 (132-148) mmol/l Potassium 4.2 (3.6-5.0) MMOL/L Chloride 114 H (98-107) mmol/L Carbon Dioxide 20 L (22-30) mmol/L Anion Gap 14 (10-20) BUN 31 H (9-20) mg/dl Creatinine 1.7 H (0.8-1.5) mg/dl Est GFR ( Amer) 47 Est GFR (Non-Af Amer) 39 Random Glucose 116 H (75-110) mg/dL Lactic Acid 0.8 (0.7-2.1) MMOL/L Calcium 7.6 L (8.4-10.2) mg/dL Total Bilirubin 0.4 (0.2-1.3) mg/dl AST 38 (17-59) U/L ALT 23 (21-72) U/L Alkaline Phosphatase 39 (38-126) U/L Total Protein 6.0 L (6.3-8.2) G/DL Albumin 3.0 L D (3.5-5.0) g/dL Globulin 3.1 (2.2-3.9) gm/dL Albumin/Globulin Ratio 1.0 (1.0-2.1) 08/12/17 08/12/17 Range/Units 18:35 18:35 WBC 6.2 (4.8-10.8) K/uL RBC 2.47 L (4.40-5.90) Mil/uL Hgb 8.1 L (12.0-18.0) g/dL Hct 24.6 L (35.0-51.0) % MCV 99.9 H (80.0-94.0) fl MCH 32.8 H (27.0-31.0) pg MCHC 32.9 L (33.0-37.0) g/dL RDW 15.8 H (11.5-14.5) % Plt Count 143 (130-400) K/uL Sodium 141 (132-148) mmol/l Potassium 4.2 (3.6-5.0) MMOL/L Chloride 112 H (98-107) mmol/L Carbon Dioxide 22 (22-30) mmol/L Anion Gap 11 (10-20) BUN 35 H (9-20) mg/dl Creatinine 1.7 H (0.8-1.5) mg/dl Est GFR ( Amer) 47 Est GFR (Non-Af Amer) 39 Random Glucose 142 H (75-110) mg/dL Lactic Acid (0.7-2.1) MMOL/L Calcium 7.5 L (8.4-10.2) mg/dL Total Bilirubin (0.2-1.3) mg/dl AST (17-59) U/L ALT (21-72) U/L Alkaline Phosphatase (38-126) U/L Total Protein (6.3-8.2) G/DL Albumin (3.5-5.0) g/dL Globulin (2.2-3.9) gm/dL Albumin/Globulin Ratio (1.0-2.1) Laboratory Results - last 24 hr 08/12/17 08/12/17 08/13/17 18:35 18:35 04:20 WBC 6.2 RBC 2.47 L Hgb 8.1 L Hct 24.6 L MCV 99.9 H MCH 32.8 H MCHC 32.9 L RDW 15.8 H Plt Count 143 Sodium 141 Potassium 4.2 Chloride 112 H Carbon Dioxide 22 Anion Gap 11 BUN 35 H Creatinine 1.7 H Est GFR ( Amer) 47 Est GFR (Non-Af Amer) 39 Random Glucose 142 H Lactic Acid 0.8 Calcium 7.5 L Total Bilirubin AST ALT Alkaline Phosphatase Total Protein Albumin Globulin Albumin/Globulin Ratio 08/13/17 08/13/17 04:40 04:40 WBC 6.3 RBC 2.45 L Hgb 8.2 L Hct 25.1 L MCV 102.4 H D MCH 33.4 H MCHC 32.7 L RDW 15.9 H Plt Count 140 Sodium 144 Potassium 4.2 Chloride 114 H Carbon Dioxide 20 L Anion Gap 14 BUN 31 H Creatinine 1.7 H Est GFR ( Amer) 47 Est GFR (Non-Af Amer) 39 Random Glucose 116 H Lactic Acid Calcium 7.6 L Total Bilirubin 0.4 AST 38 ALT 23 Alkaline Phosphatase 39 Total Protein 6.0 L Albumin 3.0 L D Globulin 3.1 Albumin/Globulin Ratio 1.0 Fingerstick Blood Sugar Results: 148 Review of Systems - Review of Systems All systems: reviewed and no additional remarkable complaints except (as above) Critical Care Progress Note - Nutrition Nutrition: Nutrition Category Date Time Status Liquid Diet [DIET] Diets 08/11/17 Dinner Active
[2017-08-13] MEDS: Pantoprazole 40 mg EC Tab PO SCH ×2 (09:32→16:14)
[2017-08-14 07:05] LABS: HEMATOCRIT 34.6 % (35.0-51.0); MEAN CORPUSCULAR HEMOGLOBIN 32.9 pg (27.0-31.0); MEAN CORPUSCULAR HGB CONC 33.3 g/dL (33.0-37.0); RED CELL DISTRIBUTION WIDTH 16.4 % (11.5-14.5); WHITE BLOOD COUNT 7.1 K/uL (4.8-10.8)
[2017-08-14] MEDS: Pantoprazole 40 mg EC Tab PO SCH (08:53)
--- NOTE | 2017-08-14 09:22 | PN ---
DAILY PROGRESS NOTE DATE: 08/13/2017 SUBJECTIVE: He feels generalized weakness; hemoglobin still low 8.2/25.1. PHYSICAL EXAMINATION: VITAL SIGNS: Blood pressure is 157/65, temperature 97.9, respiratory rate 13 and pulse 63. HEENT: Pupils equal, reactive to light. Normal-appearing mucosa of the conjunctivae, oropharynx and nasal membrane mucosa. NECK: Supple. No JVD. No carotid bruit. No lymph nodes. No thyromegaly. CHEST AND LUNGS: Bilateral symmetrical expansion. Good air exchange. No rales, no rhonchi. CARDIOVASCULAR SYSTEM: PMI not localized. S1 and S2. No additional sounds. ABDOMEN: Normoactive bowel sounds. No tenderness. No organomegaly. No masses. EXTREMITIES: No cyanosis, no clubbing, no edema. PROFESSIONAL ENGINEER: Alert, awake, oriented x2. No neurological deficit could be appreciated. ASSESSMENT: Upper gastrointestinal bleeding, acute and chronic kidney disease, stage 3; anemia of acute blood loss, alcohol withdrawn/ alcohol abuse. PLAN: Continue Protonix. We will transfuse the patient packed RBCs after consent. Follow GI recommendations regarding endoscopy. Tammie Amezquita MD
--- NOTE | 2017-08-14 09:24 | PN ---
DATE: 08/12/2017SUBJECTIVE: The patient was seen on 08/12/2017 in intensive care unit, there was no further bleeding. PHYSICAL EXAMINATION: VITAL SIGNS: Blood pressure was 133/66, temperature 98.6, respiratory rate 20 and pulse 74. HEENT: The patient has contusion around the right orbital area with lacerated wound and status post stitches. NECK: Supple. No JVD. No carotid bruits. No lymph node. No thyromegaly. CHEST AND LUNGS: Bilateral symmetrical expansion. Good air exchange. No rales, no rhonchi. CARDIOVASCULAR: PMI not localized, S1 and S2. No additional sounds. ABDOMEN: Normoactive bowel sounds. No tenderness, no organomegaly, no masses. EXTREMITIES: No cyanosis, no clubbing, no edema. CENTRAL NERVOUS SYSTEM: Alert, awake, oriented x2. No neurological deficit could be appreciated. LABORATORY DATA: Blood work on 08/12, showed hemoglobin 7.5, hematocrit 22.8, Bun 42, and creatinine 1.8. ASSESSMENT: Upper gastrointestinal bleeding, alcohol abuse/alcohol withdrawal, chronic kidney disease stage III. PLAN: We will monitor hemoglobin and hematocrit. Continue Protonix. Follow GI recommendations and follow results of the abdominal ultrasound ordered by gas check pad maker. Continue IV fluid. Tammie Amezquita MD
[2017-08-14] MEDS ORDERED: Lactated Ringer's 1,000 ML IV ONE (10:07)
[2017-08-14] MEDS ORDERED: Propofol 10 mg/ml Inj (20 ML) ONE (10:39)
[2017-08-14] MEDS ORDERED: Midazolam 2 MG/2 ML VIAL ONE (10:39)
[2017-08-14] MEDS ORDERED: Lidocaine 2% MPF (5 ml) Inj ONE (10:40)
[2017-08-14 10:56] VITALS: BP 114/73; PULSE 68; RESP 20; TEMP 97; O2SAT 98
--- NOTE | 2017-08-14 15:22 | PQF GENQUE ---
Dr. Amezquita, Etiology of the GI Bleeding ? 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 Upper GI Bleed due to esophageal varices vs a Mallery Payne tear - Protonix Drip - Octreotide drip - NPO - Follow Hb Q8H 08/11 GI consult; --alcoholic with gross hematemesis. From gastrointestinal standpoint, he is on appropriate drips, although hemoglobin is currently stable , this is unlikely variceal bleeding. 08/13 Attending progress note: Assessment : Upper gastrointestinal bleeding, acute and chronic kidney disease, stage 3; anemia of acute blood loss, alcohol withdrawn/ alcohol abuse. 08/14 Endoscopy: see full report in the EMR: Z-line irregular: inflammation/ erthyema stomach: erythematous mucosa without active bleeding and with no stigmata of bleeding second part of the duodenum: small HH; Bx. reports pending This form is a permanent part of the medical record Clarification of your documentation is requested to better reflect the severity of illness and intensity of treatment of your patient. Indicators present [] Specify: [] [] Specify: [] [] Specify: [] [] Specify: [] Location in the medical record that reflects the above clinical findings: [] Treatment Provided: [] PHYSICIAN'S RESPONSE Based on your medical judgment of the clinical indicators outlined above please clarify the following: [] Practitioner response [] If unable to determine, please check the box, sign and date. Present On Admission (POA) Indicator: [] Present at the time of admission [] Not present at the time of admission [] Clinically Undetermined In responding to this query, please exercise your independent professional judgment. The fact that a question is asked does not imply that any particular answer is desired or expected. Thank you for your clarification on this documentation. If you have any questions please call. * Thank you, Aicha Casiano RN ext. #[phone] likely gastritis, alcohol induced MTDD
== END 2017-08-14 16:03 | disposition home or self-care (01) | DRG 379 ==
LOC: H.ER 04:29 → H.ERHOLD 05:06 → H.ICU/CCU 08:18 → H.MEDSURG1 08-13 18:18
PROVIDERS: ADMIT Internal Medicine; ATTEND Internal Medicine
PROC: 0HQ1XZZ Repair Face Skin, External Approach (ICD-10-PCS; 2017-08-11)
PROC: 0DB68ZX Excision of Stomach, Via Natural or Artificial Opening Endoscopic, Diagnostic (ICD-10-PCS; 2017-08-14)
PROC: 0DB98ZX Excision of Duodenum, Via Natural or Artificial Opening Endoscopic, Diagnostic (ICD-10-PCS; principal; 2017-08-14 12:00)
DX: K29.21 Alcoholic gastritis with bleeding (principal); E11.22 Type 2 diabetes mellitus with diabetic chronic kidney disease; D69.6 Thrombocytopenia, unspecified; N18.3 Chronic kidney disease, stage 3 (moderate); S09.90XA Unspecified injury of head, initial encounter; K92.0 Hematemesis; D72.829 Elevated white blood cell count, unspecified; N40.0 Benign prostatic hyperplasia without lower urinary tract symptoms; S01.111A Laceration without foreign body of right eyelid and periocular area, initial encounter; W19.XXXA Unspecified fall, initial encounter; Y90.3 Blood alcohol level of 60-79 mg/100 ml; E55.9 Vitamin D deficiency, unspecified; R53.1 Weakness; R79.89 Other specified abnormal findings of blood chemistry; K44.9 Diaphragmatic hernia without obstruction or gangrene